=== PATIENT | female | born 1990 | race Caucasian/White ===

== ENCOUNTER 2018-12-16 00:29 | Emergency (ER) | payer MEDICAID, OTHER ==
[~2018-12-16] VITALS: Ht 175.3 cm; Wt 75.0 kg
[2018-12-16] MEDS ORDERED: KETOROLAC 15MG/ML VIAL IV ONE (04:30)
[2018-12-16 04:44] VITALS: BP 117/71
== END 2018-12-16 04:49 | disposition home or self-care (01) ==
LOC: ER 00:29
DX: M54.2 Cervicalgia (principal); R51 Headache; Z91.048 Other nonmedicinal substance allergy status; V49.59XA Passenger injured in collision with other motor vehicles in traffic accident, initial encounter; Y93.89 Activity, other specified; Y92.89 Other specified places as the place of occurrence of the external cause; Y99.8 Other external cause status
CPT/HCPCS: 70450; 71045; 72125; 96374; 99284; J1885; Z7610